=== PATIENT | female | born 1965 | race Caucasian/White ===

== ENCOUNTER 2024-05-08 16:39 | Emergency (ER) | payer SELFPAY ==
[~2024-05-08] VITALS: Ht 165.1 cm; Wt 120.7 kg
[2024-05-08 16:43] VITALS: PULSE 94; RESP 18; TEMP 99; O2SAT 97
[2024-05-08 17:16] LABS: INFLUENZA A AG NEGATIVE (NEGATIVE); INFLUENZA B AG NEGATIVE (NEGATIVE)
[2024-05-08 17:17] LABS: CORONAVIRUS COVID-19 AG NEGATIVE (NEGATIVE)
[2024-05-08] MEDS ORDERED: BENZONATATE100 MG PO (17:28)
== END 2024-05-08 17:46 | disposition home or self-care (01) ==
LOC: ER 16:53
DX: R05.9 Cough, unspecified (principal); B34.9 Viral infection, unspecified; I10 Essential (primary) hypertension; E11.9 Type 2 diabetes mellitus without complications; E78.5 Hyperlipidemia, unspecified; I48.91 Unspecified atrial fibrillation; Z11.52 Encounter for screening for COVID-19
CPT/HCPCS: 99284